=== PATIENT | female | born 1940 | race Caucasian/White ===

== ENCOUNTER 2020-01-02 15:13 | Emergency (ER) | payer OTHER ==
[~2020-01-02] VITALS: Ht 149.9 cm; Wt 59.0 kg
[2020-01-02] MEDS ORDERED: PRESERVISION A1 EAC1 (16:39)
[2020-01-02] MEDS ORDERED: GLIPIZIDE XL10 MG (16:40)
[2020-01-02] MEDS ORDERED: VITAMINA D (16:41)
[2020-01-02] MEDS ORDERED: METFORMIN HCL500 M3 (16:42)
[2020-01-02] MEDS ORDERED: FOLIC ACID 1 MG. (16:43)
[2020-01-02] MEDS ORDERED: DORZOLAMIDE (16:45)
== END 2020-01-02 23:30 | disposition home or self-care (01) ==
LOC: ER 15:13
DX: U07.1 COVID-19 (principal); K52.9 Noninfective gastroenteritis and colitis, unspecified; E86.0 Dehydration; R06.02 Shortness of breath